=== PATIENT | female | born 1970 | race Caucasian/White ===

== ENCOUNTER 2020-01-17 17:13 | Observation (INO) ==
[2020-01-17] MEDS ORDERED: Isovue-370 500 ML BOTTLE IVP ONE (17:43)
[2020-01-17] MEDS ORDERED: 0.9 % Sodium Chloride 1,000 ML IVC STA (17:44)
[2020-01-17] MEDS ORDERED: Ketorolac 15 MG/ML VIAL IVP ONE (17:44)
[2020-01-17 17:55] LABS: Basophils % 0.3 %; Eosinophils # 0.1 K/mcL (0.0-0.6); Eosinophils % 0.6 %; Hematocrit 40.1 % (35.3-44.9); Hemoglobin 11.8 g/dL (11.5-15.4); Immature Granulocytes % 0.4 % (0-4); Lymphocytes # 1.5 K/mcL (0.6-4.6); Lymphocytes % 15.4 %; Mean Corpuscular HGB Conc 29.4 g/dL (31.6-35.5); Mean Corpuscular Hemoglobin 23.7 pg (28.0-33.3); Mean Corpuscular Volume 80.7 fL (83.0-100.0); Mean Platelet Volume 9.7 fL (9.4-12.4); Monocytes # 0.7 K/mcL (0.0-1.3); Monocytes % 7.1 %; Neutrophils # 7.4 K/mcL (1.6-8.9); Platelet Count 238 K/mcL (140-400); Red Blood Count 4.97 M/mcL (3.82-4.97); Red Cell Distribution Width 16.2 % (11.5-14.5); Segmented Neutrophils % 76.2 %; White Blood Count 9.7 K/mcL (4.3-11.1)
[2020-01-17 18:15] LABS: Alanine Aminotransferase 8 Units/L (7-52); Albumin 4.5 g/dL (3.5-5.7); Albumin/Globulin Ratio 1.7 (1.1-2.2); Alkaline Phosphatase 88 Units/L (34-104); Aspartate Amino Transferase 11 Units/L (13-39); BUN/Creatinine Ratio 10 (6-26); Bilirubin,Indirect 0.4 mg/dL (0.0-1.0); Bilirubin,Total 0.4 mg/dL (0.3-1.0); Blood Urea Nitrogen 8 mg/dL (6-20); Calcium 9.4 mg/dL (8.6-10.3); Carbon Dioxide 26 mEq/L (23-29); Chloride 102 mEq/L (98-107); Globulin 2.7 g/dL (2.4-3.5); Glucose 90 mg/dL (70-105); Osmolality,Calculated 278 (280-300); Potassium 3.6 mEq/L (3.5-5.1); Sodium 135 mEq/L (136-145); Total Protein 7.2 g/dL (6.4-8.9); eGFR For African Americans > 60 (> 60); eGFR For Non-African Americans > 60 (> 60)
[2020-01-17 19:43] LABS: Bacteria,Urine Few per hpf (None-Few); Bilirubin,Urine Negative (Negative); Blood,Urine Trace (Negative); Clarity,Urine Clear (Clear); Color,Urine Light-Yellow (Yellow); Glucose,Urine (UA) Normal (Normal); Ketones,Urine 20 mg/dL (Negative); Leukocyte Esterase,Urine Negative (Negative); Mucus,Urine Few per lpf (None-Few); Nitrite,Urine Negative (Negative); Protein,Urine Trace mg/dL (Neg-Trace); RBC,Urine 0-3 per hpf (0-3); Specific Gravity,Urine 1.028 (1.010-1.025); Squamous Epithelial Cell,Urine Few per hpf (None-Few); Urobilinogen,Urine Normal (Normal); WBC,Urine 0-3 per hpf (0-3)
[2020-01-17] MEDS ORDERED: *HR* FentaNYL (PF) 100 MCG/2 ML VIAL IVP ONE ×2 (21:10→22:35)
[2020-01-17] MEDS ORDERED: Ondansetron 4 MG/2 ML VIAL IVP STA (22:34)
[2020-01-17] MEDS ORDERED: Morphine Sulfate 2 MG/ML SYRINGE IVP STA (22:40)
[2020-01-18] MEDS ORDERED: Ondansetron 4 MG/2 ML VIAL IVP PRN ×2 (00:01→14:03)
[2020-01-18] MEDS ORDERED: *HR* Metoprolol 5 MG/5 ML VIAL IVP PRN ×2 (00:01→14:03)
[2020-01-18] MEDS ORDERED: Morphine Sulfate 2 MG/ML SYRINGE IVP PRN (00:01)
[2020-01-18] MEDS ORDERED: *HR* OxyCODONE/APAP 5/325 TABLET PO PRN (00:01)
[2020-01-18] MEDS: 0.9 % Sodium Chloride 1,000 ML IVC SCH ×2 (01:08→19:19)
[2020-01-18] MEDS: cefOXitin 2,000 MG in Water for inj. (sterile) 20 ML IVP SCH ×2 (01:10→08:00)
[2020-01-18] MEDS ORDERED: *HR* Promethazine 25 MG/ML VIAL IVP PRN (10:11)
[2020-01-18] MEDS ORDERED: *HR* HYDROmorphone PF 0.5 MG/0.5 ML SYRINGE IVP PRN (10:11)
[2020-01-18] MEDS ORDERED: Ondansetron 4 MG/2 ML VIAL IVP ONE (10:11)
[2020-01-18] MEDS ORDERED: *HR* Succinylcholine 200 MG/10 ML VIAL IVP ONE (11:38)
[2020-01-18] MEDS ORDERED: Ondansetron 4 MG/2 ML VIAL ONE (11:38)
[2020-01-18] MEDS ORDERED: *HR* Midazolam HCl 2 MG/2 ML VIAL ONE (11:38)
[2020-01-18] MEDS ORDERED: *HR* Rocuronium Bromide 50 MG/5 ML VIAL ONE (11:38)
[2020-01-18] MEDS ORDERED: *HR* Propofol 200 MG/20 ML VIAL IVP ONE (11:38)
[2020-01-18] MEDS ORDERED: Neostigmine Methylsulfate 3 MG/3 ML SYRINGE ONE (11:38)
[2020-01-18] MEDS ORDERED: Dexamethasone 4 MG/ML VIAL ONE (11:38)
[2020-01-18] MEDS ORDERED: *HR* FentaNYL (PF) 100 MCG/2 ML VIAL ONE (11:38)
[2020-01-18] MEDS ORDERED: Lidocaine -MPF 2% 2 ML VIAL ONE (11:38)
[2020-01-18] MEDS ORDERED: Bupivacaine/EPI 1:200k 0.5%PF 10 ML VIAL ONE (11:39)
[2020-01-18] MEDS ORDERED: Famotidine 20 MG/2 ML VIAL ONE (11:44)
[2020-01-18] MEDS ORDERED: Acetaminophen IV 1,000 MG/100 ML BAG ONE (11:44)
[2020-01-18] MEDS ORDERED: Lidocaine HCL 4 ML Topical Solution (Laryng-O-Jet Kit Sterile Pak) TP ONE (12:11)
[2020-01-18] MEDS ORDERED: Acetaminophen IV 1,000 MG/100 ML BAG IVPB ONE (12:47)
[2020-01-18] MEDS: *HR* OxyCODONE/APAP 5/325 TABLET PO PRN (14:50)
[2020-01-18] MEDS: Morphine Sulfate 2 MG/ML SYRINGE IVP PRN ×2 (18:23→23:14)
[2020-01-19 07:15] VITALS: BP 164/79
[2020-01-19] MEDS: *HR* OxyCODONE/APAP 5/325 TABLET PO PRN (08:55)
== END 2020-01-19 09:33 | disposition home or self-care (01) ==
LOC: 3ANU 17:13 → EMEROOARM 17:13 → 3ANU 01-18 00:14
PROVIDERS: ADMIT Surgery; ATTEND Surgery

== ENCOUNTER 2020-01-20 17:27 | Observation (INO) ==
[2020-01-20] MEDS ORDERED: Ondansetron 4 MG/2 ML VIAL IVP ONE (17:43)
[2020-01-20] MEDS ORDERED: 0.9 % Sodium Chloride 1,000 ML IVC ONE (17:43)
[2020-01-20] MEDS ORDERED: *HR* HYDROmorphone (PF) 1 MG/ML SYRINGE IVP ONE (17:43)
[2020-01-20] MEDS ORDERED: Isovue-370 500 ML BOTTLE IVP ONE (17:46)
[2020-01-20 18:13] LABS: Basophils % 0.2 %; Hemoglobin 10.4 g/dL (11.5-15.4); Immature Granulocytes % 0.4 % (0-4); Lymphocytes # 0.5 K/mcL (0.6-4.6); Lymphocytes % 4.1 %; Mean Corpuscular HGB Conc 29.7 g/dL (31.6-35.5); Mean Corpuscular Volume 80.6 fL (83.0-100.0); Mean Platelet Volume 9.9 fL (9.4-12.4); Monocytes # 0.6 K/mcL (0.0-1.3); Monocytes % 4.9 %; Neutrophils # 10.9 K/mcL (1.6-8.9); Platelet Count 249 K/mcL (140-400); Red Blood Count 4.34 M/mcL (3.82-4.97); Red Cell Distribution Width 16.1 % (11.5-14.5); Segmented Neutrophils % 90.4 %
[2020-01-20 18:17] LABS: INR 1.2; Prothrombin Time 13.3 Seconds (9.4-12.1)
[2020-01-20 18:18] LABS: Bilirubin,Urine Negative (Negative); Blood,Urine Moderate (Negative); Clarity,Urine Turbid (Clear); Color,Urine Yellow (Yellow); Glucose,Urine (UA) 100 mg/dL (Normal); Ketones,Urine 100 mg/dL (Negative); Leukocyte Esterase,Urine Negative (Negative); Mucus,Urine Few per lpf (None-Few); Nitrite,Urine Negative (Negative); PH,Urine 6.5 pH Units (5.0-8.0); Protein,Urine 30 mg/dL (Neg-Trace); RBC,Urine TNTC per hpf (0-3); Specific Gravity,Urine 1.025 (1.010-1.025); Squamous Epithelial Cell,Urine Few per hpf (None-Few); WBC,Urine 0-3 per hpf (0-3)
[2020-01-20 18:33] LABS: Alanine Aminotransferase 87 Units/L (7-52); Albumin 4.1 g/dL (3.5-5.7); Albumin/Globulin Ratio 1.5 (1.1-2.2); Alkaline Phosphatase 135 Units/L (34-104); Amylase 55 Units/L (29-103); Aspartate Amino Transferase 78 Units/L (13-39); BUN/Creatinine Ratio 16 (6-26); Bilirubin,Direct 0.2 mg/dL (0.0-0.2); Bilirubin,Indirect 0.4 mg/dL (0.0-1.0); Bilirubin,Total 0.6 mg/dL (0.3-1.0); Blood Urea Nitrogen 10 mg/dL (6-20); Calcium 9.3 mg/dL (8.6-10.3); Carbon Dioxide 29 mEq/L (23-29); Chloride 99 mEq/L (98-107); Globulin 2.7 g/dL (2.4-3.5); Glucose 143 mg/dL (70-105); Lipase 24 Units/L (11-82); Osmolality,Calculated 282 (280-300); Potassium 3.3 mEq/L (3.5-5.1); Sodium 135 mEq/L (136-145); Total Protein 6.8 g/dL (6.4-8.9); eGFR For African Americans > 60 (> 60); eGFR For Non-African Americans > 60 (> 60)
[2020-01-20] MEDS ORDERED: *HR* HYDROmorphone (PF) 1 MG/ML SYRINGE ONE (18:41)
[2020-01-20] MEDS ORDERED: Ondansetron 4 MG/2 ML VIAL ONE (18:41)
[2020-01-20] MEDS ORDERED: 0.9 % Sodium Chloride 1,000 ML ONE (18:42)
[2020-01-20] MEDS ORDERED: Piperacillin/Tazobactam 3.375 GM in Water for inj. (sterile) 20 ML IVP ONE (19:46)
[2020-01-20] MEDS ORDERED: 0.9 % Sodium Chloride 1,000 ML IVC SCH (21:00)
[2020-01-20] MEDS: *HR* OxyCODONE/APAP 10/325 TABLET PO PRN (22:39)
[2020-01-20] MEDS: Ondansetron 4 MG/2 ML VIAL IVP PRN (22:40)
[2020-01-21] MEDS ORDERED: Piperacillin/Tazobactam 3.375 GM in 0.9 % Sodium Chloride Mini Bag 100 ML IVPB SCH (02:00)
[2020-01-21] MEDS: Ondansetron 4 MG/2 ML VIAL IVP PRN (03:43)
[2020-01-21] MEDS: *HR* OxyCODONE/APAP 10/325 TABLET PO PRN (03:43)
[2020-01-21] MEDS: Piperacillin/Tazobactam 3.375 GM in 0.9 % Sodium Chloride Mini Bag 100 ML IVPB SCH ×3 (06:15→20:50)
[2020-01-21 07:51] LABS: Basophils % 0.2 %; Hematocrit 30.3 % (35.3-44.9); Hemoglobin 9.2 g/dL (11.5-15.4); Immature Granulocytes % 0.3 % (0-4); Lymphocytes # 1.4 K/mcL (0.6-4.6); Lymphocytes % 13.2 %; Mean Corpuscular HGB Conc 30.4 g/dL (31.6-35.5); Mean Corpuscular Volume 82.3 fL (83.0-100.0); Mean Platelet Volume 9.8 fL (9.4-12.4); Monocytes # 0.9 K/mcL (0.0-1.3); Monocytes % 9.1 %; Neutrophils # 7.9 K/mcL (1.6-8.9); Platelet Count 208 K/mcL (140-400); Red Blood Count 3.68 M/mcL (3.82-4.97); Red Cell Distribution Width 16.1 % (11.5-14.5); Segmented Neutrophils % 77.2 %; White Blood Count 10.3 K/mcL (4.3-11.1)
[2020-01-21 08:12] LABS: Alanine Aminotransferase 69 Units/L (7-52); Albumin 3.4 g/dL (3.5-5.7); Albumin/Globulin Ratio 1.4 (1.1-2.2); Alkaline Phosphatase 119 Units/L (34-104); Aspartate Amino Transferase 50 Units/L (13-39); BUN/Creatinine Ratio 13 (6-26); Bilirubin,Direct 0.4 mg/dL (0.0-0.2); Bilirubin,Indirect 0.3 mg/dL (0.0-1.0); Bilirubin,Total 0.7 mg/dL (0.3-1.0); Blood Urea Nitrogen 7 mg/dL (6-20); Calcium 8.1 mg/dL (8.6-10.3); Carbon Dioxide 27 mEq/L (23-29); Chloride 101 mEq/L (98-107); Globulin 2.4 g/dL (2.4-3.5); Glucose 98 mg/dL (70-105); Osmolality,Calculated 276 (280-300); Potassium 3.2 mEq/L (3.5-5.1); Sodium 134 mEq/L (136-145); Total Protein 5.8 g/dL (6.4-8.9); eGFR For African Americans > 60 (> 60); eGFR For Non-African Americans > 60 (> 60)
[2020-01-21] MEDS: BuPROPion SR (12 HR) 150 MG TABLET PO SCH ×2 (09:00→20:50)
[2020-01-21] MEDS ORDERED: BuPROPion XL (24 HR) 150 MG TABLET PO SCH (09:00)
[2020-01-21] MEDS: Methylphenidate HCl 10 MG TABLET PO SCH ×4 (09:00→20:49)
[2020-01-21] MEDS ORDERED: Dexamethasone 4 MG/ML VIAL ONE (13:36)
[2020-01-21] MEDS ORDERED: Ondansetron 4 MG/2 ML VIAL ONE (13:36)
[2020-01-21] MEDS ORDERED: Lidocaine -MPF 4% 5 ML AMPUL ONE (13:36)
[2020-01-21] MEDS ORDERED: *HR* Succinylcholine 200 MG/10 ML VIAL IVP ONE (13:36)
[2020-01-21] MEDS ORDERED: Lidocaine -MPF 2% 2 ML VIAL ONE (13:36)
[2020-01-21] MEDS ORDERED: *HR* Propofol 200 MG/20 ML VIAL IVP ONE (13:37)
[2020-01-21] MEDS ORDERED: *HR* FentaNYL (PF) 100 MCG/2 ML VIAL ONE ×2 (13:37→15:58)
[2020-01-21] MEDS ORDERED: Ringers Solution, Lactated 1,000 ML IVC SCH ×2 (13:45→14:00)
[2020-01-21] MEDS ORDERED: Ketorolac 30 MG/ML VIAL IVP ONE (13:45)
[2020-01-21] MEDS ORDERED: Ondansetron 4 MG/2 ML VIAL IVP ONE (13:45)
[2020-01-21] MEDS ORDERED: Indomethacin 50 MG SUPP.RECT RC ONE (16:05)
[2020-01-22] MEDS: *HR* OxyCODONE/APAP 10/325 TABLET PO PRN (03:44)
[2020-01-22] MEDS: Ondansetron 4 MG/2 ML VIAL IVP PRN (03:45)
[2020-01-22] MEDS: Piperacillin/Tazobactam 3.375 GM in 0.9 % Sodium Chloride Mini Bag 100 ML IVPB SCH (05:46)
[2020-01-22 06:40] VITALS: BP 161/90
[2020-01-22 07:56] LABS: Alanine Aminotransferase 54 Units/L (7-52); Albumin 3.3 g/dL (3.5-5.7); Albumin/Globulin Ratio 1.4 (1.1-2.2); Alkaline Phosphatase 127 Units/L (34-104); Aspartate Amino Transferase 30 Units/L (13-39); BUN/Creatinine Ratio 15 (6-26); Bilirubin,Direct 0.3 mg/dL (0.0-0.2); Bilirubin,Indirect 0.4 mg/dL (0.0-1.0); Bilirubin,Total 0.7 mg/dL (0.3-1.0); Blood Urea Nitrogen 8 mg/dL (6-20); Calcium 8.6 mg/dL (8.6-10.3); Carbon Dioxide 28 mEq/L (23-29); Chloride 102 mEq/L (98-107); Globulin 2.4 g/dL (2.4-3.5); Glucose 96 mg/dL (70-105); Lipase 92 Units/L (11-82); Osmolality,Calculated 282 (280-300); Potassium 3.3 mEq/L (3.5-5.1); Sodium 137 mEq/L (136-145); Total Protein 5.7 g/dL (6.4-8.9); eGFR For African Americans > 60 (> 60); eGFR For Non-African Americans > 60 (> 60)
[2020-01-22 08:11] LABS: Basophils % 0.1 %; Eosinophils % 0.1 %; Hematocrit 27.7 % (35.3-44.9); Hemoglobin 8.1 g/dL (11.5-15.4); Immature Granulocytes % 0.4 % (0-4); Lymphocytes # 1.2 K/mcL (0.6-4.6); Lymphocytes % 16.6 %; Mean Corpuscular HGB Conc 29.2 g/dL (31.6-35.5); Mean Corpuscular Hemoglobin 23.7 pg (28.0-33.3); Mean Platelet Volume 10.3 fL (9.4-12.4); Monocytes # 0.6 K/mcL (0.0-1.3); Monocytes % 8.2 %; Neutrophils # 5.5 K/mcL (1.6-8.9); Platelet Count 215 K/mcL (140-400); Red Blood Count 3.42 M/mcL (3.82-4.97); Segmented Neutrophils % 74.6 %; White Blood Count 7.4 K/mcL (4.3-11.1)
[2020-01-22] MEDS: Methylphenidate HCl 10 MG TABLET PO SCH (09:21)
[2020-01-22] MEDS: BuPROPion SR (12 HR) 150 MG TABLET PO SCH (09:22)
== END 2020-01-22 09:57 | disposition home or self-care (01) ==
LOC: 3BNU 17:27 → EMEROOARM 17:27 → 3BNU 20:45
PROVIDERS: ADMIT Surgery; ATTEND Surgery

== ENCOUNTER 2022-04-19 06:30 | Inpatient (IN) ==
[2022-04-19] MEDS ORDERED: Clindamycin 900 MG/50 ML 900 MG/50 ML IV.SOLN IVPB ONE (06:52)
[2022-04-19] MEDS ORDERED: Ringers Solution, Lactated 1,000 ML IVC SCH ×2 (07:00→13:45)
[2022-04-19] MEDS ORDERED: *HR* FentaNYL (PF) 100 MCG/2 ML VIAL ONE (07:11)
[2022-04-19] MEDS ORDERED: *HR* Propofol 200 MG/20 ML VIAL IVP ONE (07:11)
[2022-04-19] MEDS ORDERED: *HR* Midazolam HCl 2 MG/2 ML VIAL ONE (07:11)
[2022-04-19] MEDS ORDERED: Lidocaine -MPF 2% 2 ML VIAL ONE (07:12)
[2022-04-19] MEDS ORDERED: *HR* Rocuronium Bromide 50 MG/5 ML VIAL ONE (07:13)
[2022-04-19] MEDS ORDERED: *HR* Succinylcholine 200 MG/10 ML VIAL IVP ONE (07:13)
[2022-04-19] MEDS ORDERED: Ondansetron 4 MG/2 ML VIAL ONE (07:13)
[2022-04-19] MEDS ORDERED: Acetaminophen IV 1,000 MG/100 ML BAG IVPB ONE (07:18)
[2022-04-19] MEDS ORDERED: Scopolamine Patch 1.5 MG PATCH.TD72 TD ONE (07:18)
[2022-04-19] MEDS ORDERED: *HR* Belladonna Alkaloids/Opium 30 MG RECTAL SUPPOSITORY RC ONE (07:20)
[2022-04-19] MEDS ORDERED: Ondansetron 4 MG/2 ML VIAL IVP PRN ×2 (07:40→11:11)
[2022-04-19] MEDS ORDERED: Promethazine 6.25 MG in Water for inj. (sterile) 20 ML IVPB PRN (07:40)
[2022-04-19] MEDS ORDERED: *HR* HYDROmorphone PF 0.5 MG/0.5 ML SYRINGE IVP PRN (07:40)
[2022-04-19] MEDS ORDERED: *HR* HYDROMORPHONE 2 MG/ML VIAL ONE (08:14)
[2022-04-19] MEDS ORDERED: Ketamine HCL *QUVA* 50mg (1mL) SYRINGE ONE (08:51)
[2022-04-19] MEDS ORDERED: Sugammadex Sodium 200 MG/2 ML VIAL IV ONE (09:49)
[2022-04-19] MEDS ORDERED: Ketorolac 30 MG/ML VIAL ONE (09:52)
[2022-04-19] MEDS ORDERED: *HR* HYDROcodone/Acet 5/325 mg TABLET PO PRN (11:11)
[2022-04-19] MEDS ORDERED: Naloxone 0.4 MG/ML INJ IVP PRN (11:11)
[2022-04-19] MEDS ORDERED: Sennosides 8.6 MG TABLET PO PRN (11:11)
[2022-04-19] MEDS ORDERED: Ibuprofen 600 MG TABLET PO PRN (11:11)
[2022-04-19] MEDS: Methylphenidate HCl 10 MG TABLET PO SCH ×3 (14:24→20:49)
[2022-04-19] MEDS: BuPROPion SR (12 HR) 150 MG TABLET PO SCH ×2 (14:24→20:49)
[2022-04-19] MEDS: *HR* OxyCODONE/APAP 5/325 TABLET PO PRN (17:42)
[2022-04-20] MEDS: *HR* OxyCODONE/APAP 5/325 TABLET PO PRN ×2 (03:41→10:06)
[2022-04-20 03:46] VITALS: O2SAT 99
[2022-04-20 04:05] LABS: Basophils % 0.1 %; Hematocrit 28.1 % (35.3-44.9); Hemoglobin 8.9 g/dL (11.5-15.4); Immature Granulocytes % 0.2 % (0-4); Lymphocytes # 1.1 K/mcL (0.6-4.6); Lymphocytes % 10.8 %; Mean Corpuscular HGB Conc 31.7 g/dL (31.6-35.5); Mean Corpuscular Volume 85.2 fL (83.0-100.0); Monocytes # 0.9 K/mcL (0.0-1.3); Monocytes % 9.5 %; Neutrophils # 7.8 K/mcL (1.6-8.9); Platelet Count 142 K/mcL (140-400); Red Cell Distribution Width 17.4 % (11.5-14.5); Segmented Neutrophils % 79.4 %; White Blood Count 9.8 K/mcL (4.3-11.1)
[2022-04-20] MEDS ORDERED: Simethicone 80 MG TAB.CHEW PO PRN (04:51)
[2022-04-20 07:51] VITALS: BP 111/63; PULSE 83; TEMP 98
[2022-04-20] MEDS ORDERED: hydroCHLOROthiazide 25 MG TABLET PO SCH (09:00)
[2022-04-20] MEDS: BuPROPion SR (12 HR) 150 MG TABLET PO SCH (10:07)
[2022-04-20] MEDS: Methylphenidate HCl 10 MG TABLET PO SCH (10:07)
== END 2022-04-20 11:00 | disposition home or self-care (01) | DRG 743 ==
LOC: SAMDAY 06:30 → 1NENUOBS 10:53
PROVIDERS: ADMIT Obstetrics & Gynecology; ATTEND Obstetrics & Gynecology